=== PATIENT | male | born 1960 | race Caucasian/White ===

== ENCOUNTER 2019-03-19 05:48 | Inpatient (IN) | payer BC ==
[2019-03-07 09:31] LABS: HEMATOCRIT 42.7 % (42.0-52.0); HEMOGLOBIN 14.4 gm/dL (14.0-18.0); MCH 30.5 pg (26.0-34.0); MCHC 33.6 g/dL (28.0-37.0); MCV 90.7 fL (80.0-100.0); MPV 8.1 fl. (7.2-11.1); RBC 4.71 mil/uL (4.50-6.00); RDW-CV 14.2 % (10.5-14.5)
[2019-03-07 09:31] LABS: URINE BILIRUBIN NEGATIVE (Negative); URINE BLOOD TRACE (Negative); URINE CLARITY CLEAR; URINE COLOR YELLOW; URINE GLUCOSE-RANDOM NEGATIVE (Negative); URINE KETONES NEGATIVE (Negative); URINE LEUKOCYTES-REFLEX NEGATIVE (Negative); URINE NITRITE-REFLEX NEGATIVE (Negative); URINE PROTEIN NEGATIVE (Negative); URINE SPECIFIC GRAVITY 1.025 (1.005-1.030); URINE UROBILINOGEN 0.2 E.U./dl (0.2-1.0)
[2019-03-07 09:39] LABS: PROTIME 10.2 Seconds (9.20-11.50)
[2019-03-07 09:43] LABS: ALBUMIN 3.8 g/dL (3.4-5.0); CALCIUM 9.5 mg/dL (8.5-10.1); CREATININE 0.9 mg/dL (0.6-1.3); POTASSIUM 3.7 mmol/L (3.5-5.1); TOTAL BILIRUBIN 0.8 mg/dL (<0.1-1.0)
--- NOTE | 2019-03-07 16:57 | EKG ---
[place] [address] ELECTROCARDIOGRAM REPORT Name: AMY JENSEN JR Room: PRE IN [facility]#: [id number] Admission: Attend Phys: Sheridan Mejia Discharge: Date of : 58 Report #: [id number] THIS REPORT FOR: //name// [facility] Test Date: 2019-03-07 Test Time: 09:50:22 Pat Name: AMY JENSEN Department: Room: Gender: M Call Person: : 1960 Requested By: Goran Rabago Order Number: [id number] Reading MD: Torsten Buenrostro Measurements Intervals [place] Rate: 61 P: 27 MI: 166 QRS: 50 QRSD: 102 T: 47 QT: 467 QTc: 471 Interpretive Statements Sinus rhythm No previous ECG available for comparison Electronically Signed On 03-07-2019 16:56:50 CDT by Torsten Buenrostro [email or web address] <ELECTRONICALLY SIGNED> By: Torsten Buenrostro MD, [facility] 03/07/19 1656 [id number] [id number] Torsten Buenrostro MD, FACC /EPI
[~2019-03-19] VITALS: Ht 185.4 cm; Wt 88.5 kg
[~2019-03-19 05:48] MED LIST: CANNABIDIOL TOP; LIPITOR10 MG PO
[2019-03-19 09:00] VITALS: BP 141/90
[2019-03-19] MEDS ORDERED: CIPRO500 M1 PO (09:15)
[2019-03-19 14:35] VITALS: BP 116/56
--- NOTE | 2019-03-19 14:58 | NUR ---
PT ADMITTED WITH RT HIP SURGERY. ALERT AND ORIENTED. ON2 LITERS O2. HEMOVAC AND ICE PACKS IN PLACE. PT EDUCATED ON USING CALL LIGHT WHEN PAIN INCREASES. FALL RISK PRECAUTIONS IN PLACE. WILL CONTINUE TO MONITOR. FAMILY AT BEDSIDE.
--- NOTE | 2019-03-19 17:03 | NUR ---
PT REMAINED ALERT AND ORIENTED AND DROWSY. CAPNO IN PLACE. PT VOIDED, TOLERATING DIET. PT EDUCATED ON USING CALL LIGHT WHEN NEEDING PAIN MEDS. FALL RISK PRECAUTIONS IN PLACE. HOURLY ROUNDING COMPLETED. WILL CONTINUE TO MONITOR.
[2019-03-19 22:33] VITALS: BP 117/83
[2019-03-20 00:28] VITALS: BP 102/62; BP 88/70
[2019-03-20 04:23] VITALS: BP 120/64
[2019-03-20 04:34] LABS: HEMATOCRIT 36.1 % (42.0-52.0); HEMOGLOBIN 12.1 gm/dL (14.0-18.0); MCH 30.5 pg (26.0-34.0); MCHC 33.6 g/dL (28.0-37.0); MCV 90.9 fL (80.0-100.0); MPV 8.9 fl. (7.2-11.1); RBC 3.97 mil/uL (4.50-6.00); RDW-CV 14.2 % (10.5-14.5)
[2019-03-20 04:54] LABS: CALCIUM 8.5 mg/dL (8.5-10.1); CREATININE 1.1 mg/dL (0.6-1.3); MAGNESIUM 1.9 mg/dL (1.8-2.4); POTASSIUM 4.1 mmol/L (3.5-5.1); TOTAL BILIRUBIN 0.4 mg/dL (<0.1-1.0); TOTAL PROTEIN 5.9 g/dL (6.4-8.2)
--- NOTE | 2019-03-20 05:01 | NUR ---
ASSUMED CARE OF PT 03/19/19 AT APPROX 1930, PT A&OX4 THROUGHOUT SHIFT, PT ON 2L NC WITH CAPNO, HEMO VAC IN PLACE, PAIN MEDS REQUESTED AND ADMINISTERED ORDERED, ASSESSMENTS AND HOURLY ROUNDINGS COMPLETED, WILL CONTINUE TO MONITOR.
[2019-03-20 07:45] VITALS: BP 131/71
[2019-03-20] MEDS ORDERED: COLACE100 MG PO (10:06)
[2019-03-20] MEDS ORDERED: PERCOCET 5-3251 EACH PO (10:08)
[2019-03-20] MEDS ORDERED: XARELTO1 EACH PO (10:18)
[2019-03-20 10:32] VITALS: BP 131/71
--- NOTE | 2019-03-20 11:20 | NUR ---
TAMANNA CALLED INTO PHARMACY AND IT WILL COST $5. WILL NOTIFY PATIENT.
--- NOTE | 2019-03-20 13:00 | NUR ---
PT.UP IN CHAIR. AT BEDSIDE. PT.SAID HE IS READY TO GO HOME TODAY. NURSING CALLED IN PRESCRIPTION FOR XARELTO TO PT.'S PHARMACY AND RECEIVED COPAY. PT.SAID HE CAN AFFORD THIS. HE HAS A WALKER AT HOME. CAN ASSIST HIM NEEDED. PT.CHOSE [facility] FOR FIRST 2 WEEKS. FAXED REFERRAL AND DISCHARGE ORDERS TO [facility] . THEY WILL CALL PT.TO SET UP APPTS.
--- NOTE | 2019-03-20 14:16 | NUR ---
PT REMAINED ALERT AND ORIENTED. PT IV REMOVED. PT LEFT VIA WHEELCHAIR WITH NURSING STAFF TO HOME WITH HOME HEALTH. FALL RISK PRECAUTIONS IN PLACE. HOURLY ROUNDING COMPLETED.
[2019-03-20 14:17] VITALS: BP 131/71
--- NOTE | 2019-03-20 22:59 | OP ---
[facility] [address] [place] [address] OPERATIVE REPORT Name: AMY JENSEN JR Room: [address] IN ..#: [id number] Admission: 03/19/19 Attend Phys: Sheridan Mejia Discharge: 03/20/19 Date of : 58 Report #: [id number] THIS REPORT FOR: //name// CC: TRISHA Pascal DATE OF SERVICE: 03/19/2019 PREOPERATIVE DIAGNOSIS: Right hip osteoarthritis, possibly secondary to avascular necrosis. POSTOPERATIVE DIAGNOSIS: Right hip osteoarthritis, possibly secondary to avascular necrosis. PROCEDURE: Right total hip arthroplasty. SURGEON: Goran Rabago II, DO MANAGER COMMUNITY: KATINA Ulloa ANESTHESIA: General endotracheal. ESTIMATED BLOOD LOSS: 500 mL. ANTIBIOTICS: Ancef preoperatively. DRAINS: Medium Hemovac. COMPLICATIONS: None. CONDITION: Stable to recovery room. IMPLANTS: Listed in operative record and progress note. BRIEF HISTORY: The patient was seen in preop area. Preop H and P was performed. Site was marked, questions were answered. Risks and benefits were discussed in detail about surgery. The patient is also discussed the significant osteoarthritis and avascular necrosis of his hip. His leg has been markedly shortened for many years of his life. We will pull this out to a normal length equal to the opposite side. The patient is discussed that he may feel leg length inequalities, but that this is to be assumed due to significant impact his hip has had within the acetabulum. The patient wished to proceed assuming all risks. DESCRIPTION OF PROCEDURE: The patient was taken [place] [address] OPERATIVE REPORT Name: AMY JENSEN Room: [address] IN [facility].#: [id number] Admission: 03/19/19 Attend Phys: Sheridan Mejia Discharge: 03/20/19 Date of : 58 Report #: [id number] placed supine on the operative table and given appropriate anesthesia. The patient's operative hip was placed in the [place] table leg ernandez and sterilely prepped and draped in the supine position. Surgery began by longitudinal incision over the anterior portion of the hip. This was carried down through the subcutaneous tissues. A small anton was made in the tensor fascia and it was then split along its fibers and retracted laterally. An H capsulotomy was then performed and careful hemostasis was obtained with electrocautery and Aquamantys. The head and neck cutting alignment guide was then checked with fluoroscopic guidance. Appropriate cut was made to the head and neck and this was removed. Attention was then turned to the acetabulum. Excess labrum was removed. It was then reamed in sequential fashion up to appropriate size. This showed an excellent bleeding bone and excellent position with fluoroscopic guidance. The acetabular cup was then malleted into position and secured with cancellous screws. There was shown to be significant osteophyte around the acetabular area and this was removed using large rongeur in a circumferential pattern to allow for placement of the acetabular cup. The metal liner was then placed. The patient's leg was then rotated and extended in the [place] table to expose the femur. It was then broached in sequential fashion to appropriate size. The appropriate neck was then trialed with appropriate head length and showed an excellent fit and fill and excellent stability of the hip throughout all range of motion. These trials were removed. The final stem was then malleted into position. Final head and neck was then malleted in position. It was reduced in appropriate fashion, checked with C-arm for appropriate leg length and shown to have excellent leg length throughout the exam without evidence of dislocation upon range of motion and a shuck testing. Wound was then copiously irrigated. Hemostasis was obtained with electrocautery and Aquamantys. Pain cocktail was injected. PRP gel sprayed throughout the internal aspects of the hip and the drain was activated. The H capsulotomy was then closed with #1 Vicryl in [id number] fashion. Tensor fascia was closed with #1 Vicryl in running fashion. Skin was closed with 2-0 Vicryl and running 3-0 Monocryl with Dermabond and sterile dressing applied. The patient transported to the recovery room in stable condition. Counts were correct throughout the procedure. <ELECTRONICALLY SIGNED> By: Goran Rabago II, DO 03/20/19 [id number] Rabago II, DO /nt
== END 2019-03-20 14:35 | disposition home health service (06) | DRG 470 ==
LOC: M.PRE 05:48 → M.TBA 08:35 → M.PRE 10:33 → M.ORTHSURG 13:53
PROVIDERS: Family Medicine; Orthopaedic Surgery; ADMIT Internal Medicine
PROC: 0SR90JA Replacement of Right Hip Joint with Synthetic Substitute, Uncemented, Open Approach (ICD-10-PCS; principal; 2019-03-19)
DX: M16.11 Unilateral primary osteoarthritis, right hip (principal); E78.5 Hyperlipidemia, unspecified; F17.220 Nicotine dependence, chewing tobacco, uncomplicated; Z53.29 Procedure and treatment not carried out because of patient's decision for other reasons; Z82.49 Family history of ischemic heart disease and other diseases of the circulatory system